=== PATIENT | female | born 1985 | race Caucasian/White ===

== ENCOUNTER → 2018-10-08 | Outpatient (CLI) | payer BC, MEDICAID ==
[~2018-10-08] MED LIST: ACET1TAB43 PO; DOCU100C37 PO; FERR325T18 PO; IBUP-1773 PO; PREN1TAB71 PO; [UNRECOGNIZED DRUG - CODE] PO
--- NOTE | 2018-10-09 08:24 | Diagnostic Imaging Report ---
EXAMINATION: Pelvic ultrasound. INDICATION: Bleeding. FINDINGS: The previous pelvic ultrasound exam of 09/14/2015 noted that the uterus and endometrial lining were unremarkable. In the interval since the prior study, an IUD has been inserted. The IUD appears to be in good position within the endometrium in the region of the body/fundus of the uterus. The endometrial lining is not thickened, although there is a small amount of fluid within the endometrium. This is nonspecific. The uterus itself is nongravid and not enlarged measuring 7.7 x 5.2 x 3.6 cm. There is no solid mass involving the uterus to suggest a fibroid. Both ovaries were identified. The previous exam did note a 2.3 cm cyst associated with the right ovary. On this exam, there is a cyst arising from the right ovary measuring 1.8 x 1.8 x 1.9 cm. This cyst has a generally benign appearance. There is also a benign-appearing 1.3 x 1.4 x 1.5 cm cyst associated with the left ovary. There is good blood flow to each ovary, and there is no sign of torsion. There is no solid pelvic mass or free fluid collection noted. IMPRESSION: 1. There is an IUD within the endometrium, and the IUD appears to be in good position. 2. There are bilateral ovarian cysts. There is no acute pelvic abnormality noted otherwise. Dictated by: Dictated on workstation # [id number]
== END ==
LOC: RAD 15:24
PROVIDERS: ATTEND Obstetrics & Gynecology
DX: N83.201 Unspecified ovarian cyst, right side (principal); N83.202 Unspecified ovarian cyst, left side; Z97.5 Presence of (intrauterine) contraceptive device
CPT/HCPCS: 76830; 76856

== ENCOUNTER 2020-08-05 10:00 | Emergency (ER) | payer BC ==
[~2020-08-05] VITALS: Ht 165 cm; Wt 77.0 kg
[~2020-08-05 10:00] MED LIST changes: +GLYB1TAB34 PO; -[UNRECOGNIZED DRUG - CODE] PO
--- NOTE | 2020-08-05 10:00 | NUR ---
PT ARRIVED PER EMS, CPR CONT, PT HAS ET TUBE IN PLACE FROM EMS, PT HAS SL IN PLACE IN L AC. PT HAS RECIEVED 8 EPI, 3 SHOCKS AND 1LIDOCAINE FOR EMS COARSE OF CARE, PT HAS NO PULSE CPR CONT. 1003 EPI 1 AMP GIVEN, BICARB 1 AMP GIVEN CPR CONT 1005 PULSE CHECK, NO PULSE CPR CONT
[2020-08-05] MEDS ORDERED: AMIODARONE (BOLUS) 150 MG/3 ML IV ONE (10:02)
[2020-08-05] MEDS ORDERED: SODIUM BICARB 8.4% 50 MEQ/50 ML (ABBOTT) SYR INJ ONE (10:02)
[2020-08-05] MEDS ORDERED: EPINEPHrine 0.1 MG/ML 10 ML (HOSPIRA) SYR IJ ONE (10:02)
[2020-08-05] MEDS ORDERED: NALOXONE 2 MG/2 ML (NARCAN) SYR IV ONE (10:02)
[2020-08-05] MEDS ORDERED: CATHETER FLUSH 10 ML SYR IV ONE (10:02)
--- NOTE | 2020-08-05 10:06 | NUR ---
1006 PT SHOCKED VT AT 200J 1007 EPI 1 AMP GIVEN 1008 NARCAN 2MG IV GIVEN 1009 PULSE CHECK NO PULSE CPR CONT 1010 IO INSERTED IN R TIBIA BY DR PULIDO 1010 AMIODARONE 300MG GIVEN IV 1011 EPI 1 AMP GIVEN 1015 VF SHOCK 200J, CPR CONT 1016 EPI 1 AMP 1018 FSBS 304. SHOCK 200J FOR VF, CPR CONT 1020 EPI 1 AMP GIVEN, COVID SWAB DONE 1022 NO PULSE, SHOCK 200J, CPR CONT 1024 CODE BLUE ENDED AT THIS X. PT WILL BE A CORNER CASE.
--- NOTE | 2020-08-05 11:54 | ED CPR ---
HPI-CPR General Chief Complaint: Code Blue Stated Complaint: CODE Source of Information: EMS, Family, Old Records Exam Limitations: No Limitations History of Present Illness Date Seen by Provider: Aug 05, 2020 Time Seen by Provider: 10:00 Initial Comments This 35-year-old woman presents to the emergency room via EMS with CPR in progress. Patient reportedly was not feeling well this morning and called her mother who is her neighbor. Mother came to the home to find her in distress from epigastric or lower chest pain. Patient also seemed to have some dry heaving or vomiting. Patient rapidly progressed and collapsed to the floor. She was unresponsive. CPR was not initiated until fire department arrived several minutes later. EMS reports 8 rounds of epinephrine, 1 amp of sodium bicarb, and 240 mg of lidocaine were administered during resuscitation efforts. Patient had a combination of asystole and fine V. fib in the field. Defibrillator shocks were administered x3. She was intubated in the field by EMS. End-tidal CO2 has been running in the 20s for EMS. Patient has no known cardiopulmonary problems. She did not complain of illness prior to this morning. There were no known drug or alcohol problems per family. She complained of headaches yesterday and went to the chiropractor. Adjustment seemed to improve her headache. Patient is diabetic. Blood sugar for EMS was 313. CPR had been ongoing for over an hour at the time of arrival with a sign ificant downtime initially. Allergies and Home Medications Allergies Coded Allergies: No Known Drug Allergies (Unverified , 12/29/11) Home Medications Acetaminophen with Codeine 1 Each Tablet, 1-2 TAB PO Q4H PRN for MODERATE TO SEVERE PAIN Prescribed by: JONO GANDHI on 06/15/16719 Docusate Sodium 100 Mg Capsule, 100 MG PO BID Prescribed by: JONO GANDHI on 06/15/16719 Ferrous Sulfate 325 Mg Tablet, 325 MG PO DAILY Prescribed by: JONO GANDHI on 06/15/16719 Ibuprofen 600 Mg Tablet, 600 MG PO Q6H Prescribed by: JONO GANDHI on 06/15/16719 Vit/Iron Fumarate/FA 1 Each Tablet, 1 EACH PO DAILY, (Reported) Patient Home Medication List Home Medication List Reviewed: Yes Review of Systems Review of Systems Constitutional: see HPI EENTM: No Symptoms Reported Respiratory: See HPI Cardiovascular: See HPI Gastrointestinal: See HPI Genitourinary: No Symptoms Reported Musculoskeletal: see HPI Skin: no symptoms reported Psychiatric/Neurological: See HPI Endocrine: No Symptoms Reported, See HPI Hematologic/Lymphatic: No Symptoms Reported Past Akvohqw-Alpthg-Xymsol Hx Past Med/Social Hx: Reviewed and Corrections made Patient Social History Type Used: Cigarettes Former Smoker, Quit: January 11, 2016 Recent Hopitalizations: No Immunizations Up To Date Tetanus Booster (TDap): More than 5yrs Seasonal Allergies Seasonal Allergies: No Past Medical History Surgeries: Yes Gallbladder Cardiac: No Headaches /Migraines : No Reproductive Disorders: No Genitourinary: No Gastrointestinal: Yes Hemorrhoids Musculoskeletal: No Endocrine: No HEENT: No Cancer: No Psychosocial: No Integumentary: No Adverse Reaction/Blood Tranf: No Family Medical History Cervical cancer (Mother) Diabetes mellitus (Grandmother) FH: cancer (Grandfathers, unknown type) Heart issue (Grandmother) Heart issue Hypertension (MOther) Thyroid disease (Brother) No Family History of: Dementia Physical Exam Vital Signs Vital Signs - First Documented 08/05/20 08/05/20 10:00 13:00 Temp 36.1 Pulse 0 Resp 20 B/P (MAP) 0/0 (0) Pulse Ox 0 O2 Delivery Ambu Bag Capillary Refill : Height, Weight, BMI Height: 5'1.00" Weight: 188lbs. 8.0oz. [id number]; 35.6 BMI Method: General Appearance: Other (Unresponsive) HEENT: Normal ENT Inspection, Other (Intubated) Neck: Normal Inspection Respiratory: Lungs Clear, Normal Breath Sounds, Other (Intubated, lung sounds present bilaterally) Cardiovascular: Other (Pulseless, extremities pale and cool) Gastrointestinal: Soft, Distended (Mildly) Extremity: No Pedal Edema, Other (Pale and cool) Neurologic/Psychiatric: Other (Unresponsive except for a few agonal breaths) Skin: Cool, Pallor Progress/Results/Core Measures Results/Orders Lab Results Laboratory Tests Test 08/05/20 10:18 08/05/20 10:20 Range/Units Glucometer 304 H 70-110 MG/DL My Orders Orders - JS BAER MD Coronavirus Sars-Cov-2 So 2019 (08/05/20 10:39) Amiodarone For Bolus (Cordarone Bolus) (08/05/20 10:02) Epinephrine Emergency Syringe (Epinephr (08/05/20 10:02) Naloxone Injection (Narcan Injection) (08/05/20 10:02) Sodium Bicarbonate 8.4% Syr (Sodium Bica (08/05/20 10:02) Sodium Chloride Flush (Catheter Flush Sy (08/05/20 10:02) Vital Signs/I&O 08/05/20 08/05/20 10:00 13:00 Temp 36.1 Pulse 0 0 Resp 20 0 B/P (MAP) 0/0 (0) 0/0 (0) Pulse Ox 0 O2 Delivery Ambu Bag Critical Care Note Critical Care Start Time: 10:00 Stop Time: 10:24 Time of : 10:24 Progress Patient arrived with CPR in progress. Epinephrine and an amp of sodium bicarb were promptly given at 10:03. Pulse check at 10:05 revealed V. tach. Defibrillation at 200 J was administered at 10:06. Another dose of epinephrine was administered at 10:07. Narcan 2 mg was administered at 10:08. Pulse check at 10:09 demonstrated asystole. IV was lost. An IO was placed at 10:10. Amio darone 300 mg was administered at 10:10 and epinephrine was administered at 10:13. Pulse check at 10:13 demonstrated asystole. Another pulse check at 10:15 showed V. fib. Defibrillation at 200 J was administered. Epinephrine was then given at 10:16. CPR was ongoing through this entire resuscitation effort except for during pulse checks. Glucose was checked at 10:18 and was 304. Patient remained in V. fib and was again defibrillated at 200 J. Another dose of epinephrine was given at 10:20. A Covid swab was also collected at 10:20. V. fib was again found on pulse check at 10:22. I did confer with Dr. Red during the course of resuscitation efforts. He had no further recommendations and had no problems with the code being called at my discretion. Resuscitation efforts continued on for over an hour and 20 minutes. Ultimately patient was pronounced at 10:24 after a final pulse check. Case was reviewed with Dr. DILLON, [employer]. 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 I debriefed with the parents after resuscitation efforts ceased. I answered their questions and gave my condolences. Departure Impression Primary Impression: Cardiac arrest Additional Impression: Ventricular fibrillation Disposition: 20 Condition: Departure-Patient Inst. Referrals: NO,LOCAL PHYSICIAN (PCP/Family) Primary Care Physician JS BAER MD Aug 05, 2020 11:54
[2020-08-05 13:00] VITALS: BP 0/0
== END 2020-08-05 13:00 | disposition expired ==
LOC: EDUNIT# 10:00 → ER 10:01
DX: I46.9 Cardiac arrest, cause unspecified (principal); I49.01 Ventricular fibrillation; Z20.828 Contact with and (suspected) exposure to other viral communicable diseases; Z82.49 Family history of ischemic heart disease and other diseases of the circulatory system; Z83.3 Family history of diabetes mellitus; Z80.49 Family history of malignant neoplasm of other genital organs; Z87.891 Personal history of nicotine dependence
CPT/HCPCS: 82962; 99284; U0002; 87635